=== PATIENT | male | born 1980 | race Caucasian/White ===

== ENCOUNTER 2024-01-06 20:33 | Observation (INO) ==
[2024-01-06] MEDS: NS 0.9% 1000 ml BAG 1,000 ML IV ONE (21:18)
[2024-01-06 21:30] LABS: Venous Bicarbonate HCO3 27.6 mmol/L (24-28)
[2024-01-06 22:18] LABS: Calcium 9.4 mg/dL (8.6-10.3); Creatinine, Serum 0.98 mg/dL (0.67-1.17); Magnesium 2.2 mg/dL (1.9-2.7); Potassium 4.2 mmol/L (3.5-5.0); eGFR CKD-EPI 97.5 (>60)
[2024-01-06 23:16] LABS: Osmolality Serum 316 mOsm/kg (275-295)
[2024-01-06] MEDS ORDERED: Senna TAB 8.6 mg TAB PO PRN (23:17)
[2024-01-06] MEDS ORDERED: Ondansetron 4 mg VIAL 2 MG/ML 2 ml VIAL IV PRN (23:17)
[2024-01-06] MEDS ORDERED: Dextrose 50% Syringe 50 ml 25 GM/50 ML SYRINGE IV PUSH PRN (23:18)
[2024-01-06] MEDS ORDERED: Albuterol HFA INHALER 8 gm MDI INH PRN (23:19)
[2024-01-07] MEDS ORDERED: Nicotine GUM 2MG FRUIT FLAVOR PO PRN (00:50)
[2024-01-07] MEDS: Lactated Ringers 1000 ml BAG 1,000 ML IV SCH (01:01)
[2024-01-07 06:29] LABS: ABS Basophils 0.1 10^3/uL (0.0-0.1); ABS Eosinophils 1.5 10^3/uL (0.0-0.5); ABS Lymphocytes 3.9 10^3/uL (1.0-4.8); ABS Monocytes 0.5 10^3/uL (0.0-1.1); ABS Neutrophils 4.4 10^3/uL (1.5-7.6); Eosinophil % 14.1 %; Hematocrit 39.9 % (38-53); Hemoglobin 13.8 g/dL (13.2-16.3); Lymphocyte % 37.5 %; Mean Corpuscular Hemoglobin 28.4 pg (27-33); Mean Corpuscular Hgb Conc 34.5 g/dL (31-36); Mean Corpuscular Volume 82.2 fL (80-97); Mean Platelet Volume 8.9 fL (7.5-11.2); Platelet Count 287 10^3/uL (150-450); Red Blood Count 4.86 10^6/uL (4.06-5.63); White Blood Count 10.4 10^3/uL (3.6-10.2)
[2024-01-07 07:00] LABS: Creatinine, Serum 0.92 mg/dL (0.67-1.17); Potassium 3.6 mmol/L (3.5-5.0); eGFR CKD-EPI 105.2 (>60)
[2024-01-07] MEDS: Nicotine PATCH 21 MG/24 HR PATCH TRANSDERM SCH (09:11)
[2024-01-07] MEDS: Enoxaparin 40 MG/0.4 ML SYR SUBCUT SCH (09:11)
[2024-01-07] MEDS: Insulin GLARGINE 100 un/ml 10 ml VIAL SUBCUT SCH (09:12)
[2024-01-07 10:57] VITALS: BP 141/90
== END 2024-01-07 14:35 | disposition home or self-care (01) ==
LOC: EDHOLD 20:33 → ED 20:33 → SUATTDRO 22:49 → SSU 01-07 07:20
PROVIDERS: ADMIT Hospitalist; ATTEND Family Medicine